=== PATIENT | female | born 1955 | race Hispanic/Latino ===

== ENCOUNTER → 2018-08-04 | Outpatient (CLI) | payer MEDICARE ==
--- NOTE | 2018-08-04 10:30 | NUR ---
MBSS COMPLETED. TRANSIENT PENETRATION WITH THIN LIQUIDS. RECOMMEND MECHANICAL SOFT, NECTAR-THICK LIQUIDS: PILLS WHOLE WITH LIQUIDS. PATIENT INFORMATION: Pt IS A 63 YEAR OLD FEMALE REFERRED FOR AN MBSS SECONDARY TO DYSPHAGIA. Pt AAOX3 DURING THE EVALUATION. Pt COOPERATIVE AND SERVED THE PRIMARY INFORMANT FOR MEDICAL AND SOCIAL HISTORY. Pt WITH NG TUBE IN PLACE AT THE TIME OF THE MBSS AND REPORTS THAT SHE HAS NOT EATEN IN 1 WEEK. Pt IS A PATIENT AT A LOCAL [facility] AND IS CURRENTLY IN THE ICU. Pt WAS ADMITTED SECONDARY TO SEPSIS AND RESPIRATORY FAILURE. 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 MBSS INTERPRETATION: Pt PRESENTS WITH MILD-MODERATE PHARYNGEAL DYSPHAGIA CAUSED BY DECREASED TONGUE BASE RETRACTION, DECREASED HYO-LARYNGEAL APPROXIMATION AND MILDLY DECREASED PHARYNGEAL RESPONSE TIME EVIDENCED BY BOLUS SPILLOVER TONGUE BASE INTO VALLECULAE WITH RESIDUE CLEARED AFTER THE SWALLOW, RESULTING IN TRANSIENT PENETRATION WITH THIN LIQUIDS VIA CUP SIP WITH NO COUGH RESPONSE. NO ASPIRATION PRESENT AT THE TIME OF THE MBSS. TRIALS: 1. TSP PUREED: GOOD 2. TSP PUDDING: GOOD 3. TSP MIXED: GOOD 4. CUP SIP THIN LIQUIDS: TRANSIENT PENETRATION (SILENT) 5. CUP SIP NECTAR-THICK LIQUIDS: GOOD RECOMMENDATIONS: 1. MECHANICAL SOFT/CHOPPED, NECTAR-THICK LIQUIDS; PILLS WHOLE WITH LIQUIDS. 2. COMPENSATORY STRATEGIES: *SLOW RATE *SMALL BITES ANS SIP *REMAIN UPRIGHT 30 MINUTES AFTER THE MEAL *NO STRAW 3. SKILLED SPEECH THERAPY IS RECOMMENDED TO TARGET AFOREMENTIONED WEAKNESSES. G-CODES SWALLOWING: [id number] Addendum: 08/05/18 at 0936 by LLOYD REEVES Amended: Links added.
== END | disposition home or self-care (01) ==
LOC: RAH 09:55
PROVIDERS: ATTEND Internal Medicine
DX: R13.10 Dysphagia, unspecified (principal); R63.3 Feeding difficulties
CPT/HCPCS: 74230; 92611